=== PATIENT | female | born 1960 | race Caucasian/White ===

== ENCOUNTER 2017-09-25 18:05 | Observation (INO) ==
--- NOTE | 2017-09-25 18:52 | ED ---
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 She states that each episode lasts about 5 minutes at a time, is now subsiding. She states that this feels different from her anxiety attacks in the past. She denies any more stressed than usual. She states that the chest discomfort becomes a 10 out of 10 at times. Complete Quality Measures for STEMI Alert Patients Related Data Home Medications Medication Instructions Recorded Confirmed dextroamphetamine-amphetamine 20 mg PO TID 09/25/17 09/25/17 [Adderall] diclofenac-misoprostol [Arthrotec 1 tab PO BID 09/25/17 09/25/17 75] epinephrine [EpiPen] 0.3 mg IM Q30M PRN 09/25/17 09/25/17 leflunomide [Arava] 10 mg PO DAILY 09/25/17 09/25/17 levothyroxine 150 mcg PO DAILY 09/25/17 09/25/17 metformin 500 mg PO BID 09/25/17 09/25/17 omeprazole 40 mg PO DAILY 09/25/17 09/25/17 prednisone 5 mg PO Q OTHER DAY 09/25/17 09/25/17 Allergies Allergy/AdvReac Type Severity Reaction Status Date / Time acetaminophen [From Percocet] Allergy Swelling Verified 09/25/17 18:37 of Lip/Tongue/Throat auranofin [From Ridaura] Allergy Swelling Verified 09/25/17 18:37 of Lip/Tongue/Throat ciprofloxacin [From Cipro] Allergy Swelling Verified 09/25/17 18:37 of Lip/Tongue/Throat codeine Allergy Swelling Verified 09/25/17 18:37 of Lip/Tongue/Throat oxycodone [From Percocet] Allergy Swelling Verified 09/25/17 18:37 of Lip/Tongue/Throat Sulfa (Sulfonamide Allergy Swelling Verified 09/25/17 18:37 Antibiotics) of Lip/Tongue/Throat Review of Systems ROS: all other systems reviewed are negative [facility] Medical History Medical History Anxiety (Acute) Diabetes (Acute) High cholesterol (Acute) History of thyroidectomy (Acute) Hypothyroid (Acute) Rheumatoid arthritis (Acute) Sleep apnea with use of continuous positive airway pressure (CPAP) (Acute) Surgical History Surgical History H/O adenoidectomy (Acute) History of abdominoplasty (Acute) Hx of tonsillectomy (Acute) Social History Social History Substance History: No History of Abuse Second Hand Smoke Exposure: No Smoking Status: Never smoker How Often Do You Have a Drink Containing Alcohol: Never Recent Travel in [facility] within the Last 8 Weeks: No Recent Out of Country Travel within the Last 8 Weeks: No Immunization History Tetanus Immunization: <5 Years Hx Influenza Vaccine This Season: No Exam Narrative Exam Narrative: GENERAL: Well-developed middle-age female patient currently in mild distress. Awake and oriented 3. SKIN: Focused skin assessment warm/dry. HEAD: Atraumatic. Normocephalic. EYES: Pupils equal and round. No scleral icterus. No injection or drainage. ENT: No nasal bleeding or discharge. Mucous membranes pink and moist. NECK: Trachea midline. No JVD. CARDIOVASCULAR: Regular rate and rhythm. No murmur appreciated. RESPIRATORY: No accessory muscle use. Clear to auscultation. Breath sounds equal bilaterally. GASTROINTESTINAL: Abdomen soft, non-tender, nondistended. Hepatic and splenic margins not palpable. MUSCULOSKELETAL: No obvious deformities. No clubbing. No cyanosis. No edema. NEUROLOGICAL: Awake and alert. No obvious cranial nerve deficits. Motor grossly within normal limits. Normal speech. PSYCHIATRIC: Mildly anxious mood and affect; insight and judgment normal. Course Initial Documented Vital Signs Temperature 98.2 F 09/25/17 18:11 Pulse Rate 91 H 09/25/17 18:11 Respiratory Rate 15 09/25/17 18:11 Blood Pressure 152/69 H 09/25/17 18:11 Pulse Oximetry 98 09/25/17 18:11 Last Documented Vital Signs Temperature 98.2 F 09/25/17 18:11 Pulse Rate 78 08/20/18 19:12 Respiratory Rate 18 09/25/17 19:12 Blood Pressure 134/80 09/25/17 19:12 Pulse Oximetry 97 09/25/17 19:12 Sign Out Sign Out Data: Patient Sign Out occurred on 09/25/17 at 19:20. Patient's care was discussed, and care was transferred from Davian Tello MD to Cynthia Melissa MD. Sign Out Comment: Patient is signed out to Dr. Melissa at 7 PM awaiting workup. Disposition based on workup. Last updated by Davian Tello MD at 09/25/17 19:04 Post-Handoff Eval: During the course of the patient's emergency department visit, the patient's history, examination, and differential diagnosis were reviewed with the patient. The patient was placed on a harmonic analyst with oximetry and frequent blood pressure monitoring. The patient had IV access obtained and blood work sent for analysis. The patient's case was checked out to me by at the conclusion of her shift. The patient was initially provided aspirin 324 mg p.o. x1, nitroglycerin 1 inch the chest wall. The patient's diagnostic evaluation is remarkable for normal white count of 5.4 , platelets 245, normal differential with a normal hemoglobin of 12.4, PT 9.7, PTT 22.6 with a d-dimer that is within normal limits at 0.27 decreasing likelihood of pulmonary embolism in this patient with no other significant risk factors. Chemistries are remarkable for a troponin I of less than 0.02, BUN 27. Patient's chest x-ray showed no acute abnormality. The patient's results were discussed with the patient, including the plan of care. I explained that further testing and/ or monitoring is indicated based on the patient's history, examination, and/ or laboratory findings. Therefore, I recommended admission for additional evaluation. The patient expressed understanding and was agreeable with this plan. The patient was admitted to the hospital in stable condition and sent to a bed under the care of the [facility]. Medical Decision Making MDM Narrative Medical Screen Exam Complete: Yes Emergency Medical Condition: Yes Differential Diagnosis Differential Diagnosis: Dysrhythmias versus anxiety attack versus ACS Medical Records Medical records reviewed: Yes I reviewed the patient's medical records. Lab Data Lab results reviewed: Yes I reviewed the patient's lab results. Result diagrams: 09/25/17 19:00 09/25/17 19:00 Lab Results 09/25/17 09/25/17 09/25/17 Range/Units 19:00 19:00 19:00 WBC 5.4 (4.0-11.0) th/mm3 RBC 4.23 (4.00-5.30) mil/mm3 Hgb 12.4 (11.6-15.3) gm/dL Hct 37.5 (35.0-46.0) % MCV 88.6 (80.0-100.0) fL MCH 29.3 (27.0-34.0) pg MCHC 33.0 (32.0-36.0) % RDW 15.1 (11.6-17.2) % Plt Count 245 (150-450) th/mm3 MPV 8.6 (7.0-11.0) fL Neut % (Auto) 65.3 (16.0-70.0) % Lymph % (Auto) 24.0 (9.0-44.0) % [place] % (Auto) 7.4 (0.0-8.0) % Eos % (Auto) 2.5 (0.0-4.0) % Baso % (Auto) 0.8 (0.0-2.0) % Neut # (Auto) 3.5 (1.8-7.7) th/mm3 Lymph # (Auto) 1.3 (1.0-4.8) th/mm3 [place] # (Auto) 0.4 (0.0-0.9) th/mm3 Eos # (Auto) 0.1 (0.0-0.4) th/mm3 Baso # (Auto) 0.0 (0.0-0.2) th/mm3 WBC Differential . Differential Comment Auto diff final PT 9.7 L (9.8-11.6) sec INR 1.0 Ratio APTT 22.6 L (24.3-30.1) sec D-Dimer Quant (PE/DVT) 0.27 (0.00-0.50) mg/L FEU Sodium 139 (136-145) meq/L Potassium 3.6 (3.5-5.1) meq/L Chloride 104 (98-107) meq/L Carbon Dioxide 24.1 (21.0-32.0) meq/L Anion Gap 11 (5-15) meq/L BUN 27 H (7-18) mg/dL Creatinine 0.51 (0.50-1.00) mg/dL Estimated GFR Greater than 89 (>89) mL/min Random Glucose 93 (74-106) mg/dL Calcium 8.5 (8.5-10.1) mg/dL Total Bilirubin 0.2 (0.2-1.0) mg/dL AST 36 (15-37) U/L ALT 41 (10-53) U/L Alkaline Phosphatase 85 (45-117) U/L Troponin I Less than 0.02 L (0.02-0.05) ng/mL Total Protein 7.3 (6.4-8.2) g/dL Albumin 3.5 (3.4-5.0) g/dL Imaging Data Radiologist's impression: Chest X-Ray 09/25/17 18:39 CONCLUSION: The lungs are clear. Discharge Plan Discharge Disposition Patient Disposition: 30 Still Patient Discharge Details Diagnosis: Chest pain, rule out acute myocardial infarction Physicians Team ED Provider: Cynthia Melissa Primary Care Provider: Lisa Ramsay Attending Provider: Saul Guevara Discharge Interventions Interventions: Vital Signs Last Done: 09/25/17 19:12 Status ED Status: Admitted Observation Patient
--- NOTE | 2017-09-25 19:18 | XR ---
EXAM DATE: 09/25/2017 7:10 PM EDT AGE/SEX: 57 years / Female INDICATIONS: Chest pain CLINICAL DATA: This is the patient's initial encounter. Patient reports that signs and symptoms have been present for 1 day and indicates a pain score of 3/10. MEDICAL/SURGICAL HISTORY: Diabetes mellitus type II. . COMPARISON: No prior exams available for comparison. FINDINGS: A single AP view of the chest demonstrates the lungs to be symmetrically aerated without evidence of mass, infiltrate or effusion. The cardiomediastinal contours are unremarkable. Osseous structures a re intact. CONCLUSION: The lungs are clear. Electronically signed by: Van Thomason MD 09/25/2017 7:17 PM EDT
[2017-09-25 19:38] LABS: Baso % (Auto) 0.8 % (0.0-2.0); Eos # (Auto) 0.1 th/mm3 (0.0-0.4); Eos % (Auto) 2.5 % (0.0-4.0); Hematocrit 37.5 % (35.0-46.0); Hemoglobin 12.4 gm/dL (11.6-15.3); Lymph # (Auto) 1.3 th/mm3 (1.0-4.8); Mean Corpuscular Hemoglobin 29.3 pg (27.0-34.0); Mean Corpuscular Volume 88.6 fL (80.0-100.0); Mean Platelet Volume 8.6 fL (7.0-11.0); Mono # (Auto) 0.4 th/mm3 (0.0-0.9); Mono % (Auto) 7.4 % (0.0-8.0); Neut # (Auto) 3.5 th/mm3 (1.8-7.7); Neut % (Auto) 65.3 % (16.0-70.0); Platelet Count 245 th/mm3 (150-450); Red Blood Count 4.23 mil/mm3 (4.00-5.30); Red Cell Distribution Width 15.1 % (11.6-17.2); White Blood Count 5.4 th/mm3 (4.0-11.0)
[2017-09-25 19:58] LABS: Activated Partial Thrombo Time 22.6 sec (24.3-30.1); Alanine Aminotransferase 41 U/L (10-53); Albumin 3.5 g/dL (3.4-5.0); Anion Gap 11 meq/L (5-15); Aspartate Aminotransferase 36 U/L (15-37); Blood Urea Nitrogen 27 mg/dL (7-18); Calcium 8.5 mg/dL (8.5-10.1); Carbon Dioxide 24.1 meq/L (21.0-32.0); Chloride 104 meq/L (98-107); Glomerular Filtration Rate Greater Than 89 mL/min (>89); Glucose,Random 93 mg/dL (74-106); Potassium 3.6 meq/L (3.5-5.1); Prothrombin Time 9.7 sec (9.8-11.6); Sodium 139 meq/L (136-145)
[2017-09-25 20:02] LABS: Alkaline Phosphatase 85 U/L (45-117); Total Protein 7.3 g/dL (6.4-8.2)
[2017-09-25 20:11] LABS: D-Dimer 0.27 mg/L FEU (0.00-0.50)
[2017-09-25 23:03] LABS: Creatine Kinase 109 U/L (26-192)
[2017-09-25 23:09] LABS: Bacteria,Urine Rare /hpf; Bilirubin,Urine Negative (Negative); Clarity,Urine Clear (Clear); Color,Urine Yellow (Yellw/Straw); Glucose,Urine (UA) Negative (Negative); Leukocyte Esterase,Urine Trace (Negative); Mucus,Urine Few /lpf (Occasional); Nitrite,Urine Negative (Negative); Specific Gravity,Urine 1.015 (1.002-1.035)
[2017-09-25 23:43] VITALS: RESP 16
[2017-09-26] MEDS: Acetaminophen 500 MG Tablet PO PRN ×2 (00:07→12:46)
[2017-09-26 02:34] LABS: Creatine Kinase 93 U/L (26-192)
--- NOTE | 2017-09-26 08:23 | ECG ---
Date Performed: 09/25/2017 Time Performed: 18:49:20 PTAGE: 57 years EKG: Sinus rhythm WITH SHORT OH INTERVAL BORDERLINE ECG NO PREVIOUS TRACING DOCTOR: Lilo Simon Interpretating Date/Time 09/26/2017 08:22:41
--- NOTE | 2017-09-26 08:26 | ECG ---
Date Performed: 09/25/2017 Time Performed: 22:08:32 PTAGE: 57 years EKG: Sinus rhythm NORMAL ECG Since PREVIOUS TRACING , no significant change noted PREVIOUS TRACIN09/25/2017 18.49 DOCTOR: Lilo Simon Interpretating Date/Time 09/26/2017 08:25:29
--- NOTE | 2017-09-26 08:26 | ECG ---
Date Performed: 09/26/2017 Time Performed: 01:30:11 PTAGE: 57 years EKG: Sinus rhythm LOW QRS VOLTAGE IN EXTREMITY LEADS BORDERLINE ECG Since PREVIOUS TRACING , no significant change noted PREVIOUS TRACIN09/25/2017 22.08 DOCTOR: Lilo Simon Interpretating Date/Time 09/26/2017 08:25:41
[2017-09-26] MEDS ORDERED: Acetaminophen 500 MG Tablet PO PRN (08:29)
[2017-09-26 08:33] VITALS: BP 139/81; PULSE 72; TEMP 98.3; O2SAT 97
[2017-09-26] MEDS ORDERED: Levothyroxine 150 MCG Tablet PO SCH (09:30)
[2017-09-26] MEDS ORDERED: Aspirin 325 MG Tablet PO SCH (09:30)
[2017-09-26] MEDS ORDERED: Regadenoson Inj 0.4 MG/5 ML Syringe IV.PUSH ONE (10:11)
--- NOTE | 2017-09-26 10:15 | P.HPCA ---
History of Present Illness Primary Care Physician: Lisa Ramsay MD Chief Complaint: Chest pain History of Present Illness: This is a 57-year-old female with history of diabetes, hyperlipidemia, rheumatoid arthritis presents to ED with complaint of developing left-sided chest discomfort yesterday. It occurred while she is at work. She had several episodes each lasting a few minutes at a time., Nausea, or diaphoresis. He does have mild had a similar issue about 8 years ago and had a normal heart catheterization. Denies recent illness. Denies fevers or chills. Denies chest discomfort States that her father had coronary disease issues and age less than 50. Quit smoking many years ago. - Diagnosis (1) Chest pain (2) Diabetes (3) Hyperlipidemia Review of Systems General: Patient denies fevers, chills, and recent travel. HEENT: Patient denies headache, sore throat, difficulty swallowing. Cardiovascular: Has the chest discomfort as mentioned above. Denies sensation of heart beating rapidly or irregularly. No syncope. Denies diaphoresis. Respiratory: Denies shortness of breath or inspirational chest discomfort. Denies coughing wheezing or hemoptysis. GI: Patient denies nausea, vomiting, diarrhea, abdominal pain, bloody stools. Musculoskeletal: Patient denies joint pain or edema. Denies calf pain or edema. Neurovascular: Patient denies numbness, tingling, weakness in extremities. Denies headache. Endocrine: Denies polyuria and polydipsia. Hematologic: Denies easy bruising. Skin: Denies rash or itching. PMFSH - History History Provided By: Patient - Medical History Medical History: Medical History (Last Reviewed 09/25/17 @ 23:44 by Corazon Wallace RN) Anxiety Diabetes High cholesterol History of thyroidectomy Hypothyroid Rheumatoid arthritis Sleep apnea with use of continuous positive airway pressure (CPAP) - Surgical History Surgical History: Surgical History (Last Reviewed 09/25/17 @ 23:44 by Corazon Wallace RN) H/O adenoidectomy History of abdominoplasty Hx of tonsillectomy - Tobacco History Second Hand Smoke Exposure: No Smoking Status: Never smoker - Alcohol History How Often Do You Have a Drink Containing Alcohol: Never - Substance Use History Substance History: No History of Abuse - Travel History Recent Travel in the [place] Within the Last 8 Weeks: No Recent Travel Out of the Country Within the Last 8 Weeks: No - Immunization History Tetanus Immunization: <5 Years Hx Influenza Vaccine This Season: No Medications and Allergies Active Medications: Active Medications Acetaminophen (Tylenol) 500 mg PO Q4H PRN PRN Reason: HEADACHE Last Admin: 09/26/17 00:07 Dose: 500 mg Acetaminophen (Tylenol) 500 mg PO Q6H PRN PRN Reason: pain scale 1-5 Hydrocodone Bitart/Acetaminophen ([place] 7.5/325) 1 tab PO Q6H PRN PRN Reason: pain scale 6-10 Aspirin (Aspirin) 325 mg PO DAILY VINCE Levothyroxine Sodium (Synthroid) 150 mcg PO DAILY@0600 VINCE Pantoprazole Sodium (Protonix) 40 mg PO DAILY VINCE Sodium Chloride (Ns Flush) 2 ml IV.FLUSH UNSCH PRN PRN Reason: FLUSH AFTER USING IV ACCESS Sodium Chloride (Ns Flush) 2 ml IV.FLUSH BID VINCE Sodium Chloride (Ns Flush) 2 ml IV.FLUSH PRN PRN PRN Reason: FLUSH AFTER USING IV ACCESS Allergies Allergy/AdvReac Type Severity Reaction Status Date / Time acetaminophen [From Percocet] Allergy Swelling Verified 09/25/17 18:37 of Lip/Tongue/Throat auranofin [From Ridaura] Allergy Swelling Verified 09/25/17 18:37 of Lip/Tongue/Throat ciprofloxacin [From Cipro] Allergy Swelling Verified 09/25/17 18:37 of Lip/Tongue/Throat codeine Allergy Swelling Verified 09/25/17 18:37 of Lip/Tongue/Throat oxycodone [From Percocet] Allergy Swelling Verified 09/25/17 18:37 of Lip/Tongue/Throat Sulfa (Sulfonamide Allergy Swelling Verified 09/25/17 18:37 Antibiotics) of Lip/Tongue/Throat Home Medications Medication Instructions Recorded Confirmed Type dextroamphetamine-amphetamine 20 mg PO TID 09/25/17 09/25/17 History [Adderall] diclofenac-misoprostol [Arthrotec 1 tab PO BID 09/25/17 09/25/17 History 75] epinephrine [EpiPen] 0.3 mg IM Q30M PRN 09/25/17 09/25/17 History leflunomide [Arava] 10 mg PO DAILY 09/25/17 09/25/17 History levothyroxine 150 mcg PO DAILY 09/25/17 09/25/17 History metformin 500 mg PO BID 09/25/17 09/25/17 History omeprazole 40 mg PO DAILY 09/25/17 09/25/17 History prednisone 5 mg PO Q OTHER DAY 09/25/17 09/25/17 History Exam Vital signs: Vital Signs 09/25/17 18:11 09/25/17 18:27 09/25/17 18:42 Temperature 98.2 F Pulse Rate 91 H 91 H Respiratory Rate 15 16 Blood Pressure 152/69 H 145/80 H Pulse Oximetry 98 98 98 09/25/17 18:43 09/25/17 19:12 09/25/17 22:05 Temperature Pulse Rate 93 H 78 86 Respiratory Rate 16 18 18 Blood Pressure 143/60 H 134/80 136/78 Pulse Oximetry 100 97 97 09/25/17 23:42 09/26/17 00:00 09/26/17 04:00 Temperature 97.1 F L 97.5 F L Pulse Rate 79 74 70 Respiratory Rate 16 16 Blood Pressure 129/75 100/63 Pulse Oximetry 97 98 09/26/17 08:00 Temperature 98.3 F Pulse Rate 72 Respiratory Rate 16 Blood Pressure 139/81 Pulse Oximetry 97 Intake & Output 09/25/17 09/26/17 09/26/17 18:59 06:59 18:59 Intake Total 0 / 0 Balance 0 / 0 Weight 73.936 kg 73.9 kg Intake: Oral 0 / 0 Other: # Voids 2 Date of Last Bowel Movement 09/25/17 Weight On Admission 73.9 kg Narrative: GENERAL: This is a well-nourished, well-developed patient, in no apparent distress. Patient speaks in clear complete sentences. Patient is pleasant. HEENT: Head is atraumatic and normocephalic. Neck is supple without lymphadenopathy and trachea is midline. No JVD or carotid bruits. CARDIOVASCULAR: Regular rate and rhythm without murmurs, gallops, or rubs. RESPIRATORY: Clear to auscultation. Breath sounds equal bilaterally. No wheezes , rales, or rhonchi. Chest wall is nontender. No use of accessory muscles. GASTROINTESTINAL: Abdomen is nontender, nondistended. Abdomen soft. No obvious pulsatile mass or bruit. No CVA tenderness. Strong femoral pulses bilaterally. Normal bowel sounds in all quadrants. MUSCULOSKELETAL: Patient is moving upper and lower extremities freely. No calf tenderness or edema, no Homans sign. Strong pulses in upper and lower extremities. NEUROLOGICAL: Patient is alert and oriented. Cranial nerves 2-12 are grossly intact. No focal deficits and speech is clear. SKIN: No rash and turgor is normal. Results 09/25/17 19:00 09/25/17 19:00 Cardiac Enzymes 09/25/17 09/25/17 09/26/17 Range/Units 19:00 22:14 01:20 AST 36 (15-37) U/L Troponin I Less than 0.02 L Less than 0.02 L Less than 0.02 L (0.02-0.05) ng/mL Coagulation 09/25/17 Range/Units 19:00 PT 9.7 L (9.8-11.6) sec APTT 22.6 L (24.3-30.1) sec CBC 09/25/17 Range/Units 19:00 WBC 5.4 (4.0-11.0) th/mm3 RBC 4.23 (4.00-5.30) mil/mm3 Hgb 12.4 (11.6-15.3) gm/dL Hct 37.5 (35.0-46.0) % Plt Count 245 (150-450) th/mm3 Neut # (Auto) 3.5 (1.8-7.7) th/mm3 Lymph # (Auto) 1.3 (1.0-4.8) th/mm3 [place] # (Auto) 0.4 (0.0-0.9) th/mm3 Eos # (Auto) 0.1 (0.0-0.4) th/mm3 Baso # (Auto) 0.0 (0.0-0.2) th/mm3 Comprehensive Metabolic Panel 09/25/17 Range/Units 19:00 Sodium 139 (136-145) meq/L Potassium 3.6 (3.5-5.1) meq/L Chloride 104 (98-107) meq/L Carbon Dioxide 24.1 (21.0-32.0) meq/L BUN 27 H (7-18) mg/dL Creatinine 0.51 (0.50-1.00) mg/dL Calcium 8.5 (8.5-10.1) mg/dL AST 36 (15-37) U/L ALT 41 (10-53) U/L Alkaline Phosphatase 85 (45-117) U/L Total Protein 7.3 (6.4-8.2) g/dL Albumin 3.5 (3.4-5.0) g/dL Intake and Output 09/25/17 09/26/17 09/26/17 22:59 06:59 14:59 Intake Total 0 / 0 Balance 0 / 0 Intake: Oral 0 / 0 Other: # Voids 2 Date of Last Bowel Movement 09/25/17 Weight 73.936 kg 73.9 kg Weight On Admission 73.9 kg EKG interpretations - EKG EKG shows: sinus rhythm (EKGs are sinus rhythm with nonspecific inferior lateral T-wave changes.) Caprini VTE Risk Assessment Caprini VTE Risk Assessment: No/Low Risk (score <= 1) Caprini Risk Assessment Model: Point Value = 1 Point Value = 2 Point Value = 3 Point Value = 5 Age 41-60 Minor surgery BMI > 25 kg/m2 Swollen legs Varicose veins or History of unexplained or recurrent spontaneous Oral contraceptives or hormone replacement Sepsis (< 1 month) Serious lung disease, including pneumonia (< 1 month) Abnormal pulmonary function Acute myocardial infarction Congestive heart failure (< 1 month) History of inflammatory bowel disease Medical patient at bed rest Age 61-74 Arthroscopic surgery Major open surgery (> 45 min) Laparoscopic surgery (> 45 min) Malignancy Confined to bed (> 72 hours) Immobilizing plaster cast Central venous access Age >= 75 History of VTE Family history of VTE Factor V Leiden Prothrombin [id number] Lupus anticoagulant Anticardiolipin antibodies Elevated serum homocysteine Heparin-induced thrombocytopenia Other congenital or acquired thrombophilia Stroke (< 1 month) Elective arthroplasty Hip, pelvis, or leg fracture Acute spinal cord injury (< 1 month) Prophylaxis Regimen: Total Risk Factor Score Risk Level Prophylaxis Regimen 0-1 Low Early ambulation 2 Moderate Order ONE of the following: *Sequential Compression Device (SCD) *Heparin 5000 units SQ BID 3-4 Higher Order ONE of the following medications: *Heparin 5000 units SQ TID *Enoxaparin/Lovenox 40 mg SQ daily (WT < 150 kg, CrCl > 30 mL/min) *Enoxaparin/Lovenox 30 mg SQ daily (WT < 150 kg, CrCl > 10-29 mL/min) *Enoxaparin/Lovenox 30 mg SQ BID (WT < 150 kg, CrCl > 30 mL/min) AND/OR *Sequential Compression Device (SCD) 5 or more Highest Order ONE of the following medications: *Heparin 5000 units SQ TID (Preferred with Epidurals) *Enoxaparin/Lovenox 40 mg SQ daily (WT < 150 kg, CrCl > 30 mL/min) *Enoxaparin/Lovenox 30 mg SQ daily (WT < 150 kg, CrCl > 10-29 mL/min) *Enoxaparin/Lovenox 30 mg SQ BID (WT < 150 kg, CrCl > 30 mL/min) AND *Sequential Compression Device (SCD) Assessment and Plan - Assessment (1) Chest pain Code(s): R07.9 - Chest pain, unspecified Status: Acute (2) Diabetes Code(s): E11.9 - Type 2 diabetes mellitus without complications Status: Acute (3) Hyperlipidemia Code(s): E78.5 - Hyperlipidemia, unspecified Status: Acute - Plan * Chest pain: Patient has had serial cardiac enzymes and EKGs for ruling out purposes. She was seen by Dr. Simon of cardiology in the chest pain center. States she would not be able to walk on a treadmill stress, subsequently patient will have a Lexiscan. She will be discharged home if her stress test is nonischemic with instructions to follow-up PCP. Return to ED for interval issues. * Diabetes: Hold metformin. Have sliding scale insulin coverage as needed. He will need to follow diabetic diet. Patient also needs to discuss being on WILLAM inhibitor with her history of diabetes. * Hyperlipidemia: Do not see statin on her home medication list. She should be on statin regardless of lipid status with her history of diabetes. She is discuss this with her PCP. Patient is stable at this time. She is agreeable to this plan. H&P: Quality - VTE Deep Vein Thrombosis/Pulmonary Embolism Present on Admission: No
--- NOTE | 2017-09-26 11:57 | NM ---
EXAM DATE: 09/26/2017 11:11 AM EDT AGE/SEX: 57 years / Female INDICATIONS:Angina. . Substernal chest pain with palpitations and dizziness. CLINICAL DATA: This is the patient's initial encounter. Patient reports that signs and symptoms have been present for 1 day and indicates a pain score of 10/10. MEDICAL/SURGICAL HISTORY: Diabetes mellitus type II. Hypothyroidism. Thyroidectomy. Tonsillec juliette. COMPARISON: [facility], CHEST 1V SINGLE AP, 09/25/2017. . DOSE: 8.1 mCi Tc 99m Myoview at rest 26.1 mCi [id number] at stress 0.4 mg Lexiscan STRESS SYMPTOMS: Short of breath. EJECTION FRACTION: >70 % TECHNIQUE: The patient underwent pharmacologic stress with infusion of prescribed dose. Continuous ECG tracing was monitored during stress. Gated SPECT imaging was performed after stress and conventi onal SPECT imaging was performed at rest. The examination was performed on a SPECT/CT scanner, both attenuation and non-corrected datasets were reviewed. FINDINGS: Distribution: The maximum perfused segment at stress is in the septal wall. Perfusion Study: Focal decreased apparent perfusion in the anterior wall near the base. Suspect this is secondary to breast attenuation. Gated Study: There are intact wall motion and wall thickening without hypokinetic or dyskinetic segm ents. The ejection fraction is calculated at >70%. RISK CATEGORY: Low (<1% Annual Motality Rate) CONCLUSION: 1. Probable breast attenuation artifact in the anterior inferior wall on stress imaging. No definiti ve evidence for stress-induced ischemia. 2. Intact wall motion with EF of greater than 70%. Electronically signed by: Handy Griffith MD 09/26/2017 11:55 AM EDT
--- NOTE | 2017-09-26 16:29 | TR ---
Date Performed: 09/26/2017 Time Performed: 10:04:29 DOCTOR: Lilo Simon DRUG LIST: CLINICAL HISTORY: REASON FOR TEST: REASON FOR ENDING: OBSERVATION: CONCLUSION: Lexiscan stress test was performed under standard four minute protocol. Radionuclid e was injected one minute prior to ending the test. No electrocardiographic abormalities were present to suggest ischemia. Nuclear imaging and interpretation are pending. COMMENTS: No ischemia
== END 2017-09-26 14:17 | disposition home or self-care (01) ==
LOC: NEPE 18:05 → NEDA 18:05 → NEPGCP 18:05 → NEDA 23:31 → NEPGCP 23:47
PROVIDERS: ADMIT Internal Medicine Cardiovascular Disease; ATTEND Internal Medicine Cardiovascular Disease